=== PATIENT | female | born 1950 | race Caucasian/White ===

== ENCOUNTER → 2016-10-20 | Outpatient (CLI) | payer MEDICARE | LOC: WC.BC 08:53 | DX: Z12.31 Encounter for screening mammogram for malignant neoplasm of breast (principal); R92.8 Other abnormal and inconclusive findings on diagnostic imaging of breast; N64.59 Other signs and symptoms in breast; C50.911 Malignant neoplasm of unspecified site of right female breast; Z98.890 Other specified postprocedural states | CPT/HCPCS: 77063; G0202 ==